=== PATIENT | female | born 1935 | race African-American/Black ===

== ENCOUNTER 2020-04-12 14:27 | Outpatient (CLI) | payer MEDICARE ==
--- NOTE | 2020-04-12 14:57 | RAD ---
EXAM: Chest 2 views: HISTORY: Dyspnea COMPARISON: 04/05/2020 FINDINGS: There is a normal-sized cardiomediastinal silhouette. Hyperexpansion of the lungs is consistent with COPD. There is no evidence of consolidation, mass, or pleural effusion. The bones are unremarkable. IMPRESSION: No evidence of acute cardiopulmonary disease
== END 2020-04-12 14:28 | disposition home or self-care (01) ==
LOC: BICRAD 14:27
PROVIDERS: ATTEND Internal Medicine Pulmonary Disease
DX: R06.00 Dyspnea, unspecified (principal)
CPT/HCPCS: 71046